=== PATIENT | female | born 1975 | race American Indian/Alaskan Native ===

== ENCOUNTER 2017-09-11 18:18 | Emergency (ER) | payer OTHER ==
[2017-09-12] MEDS ORDERED: MOTRIN PO ONE (00:41)
[2017-09-12] MEDS ORDERED: FLEXERIL PO ONE (00:41)
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
[2017-09-12 01:55] VITALS: BP 148/73
== END 2017-09-12 01:50 | disposition home or self-care (01) ==
LOC: ED 18:18
DX: S16.1XXA Strain of muscle, fascia and tendon at neck level, initial encounter (principal); M62.838 Other muscle spasm; Z88.2 Allergy status to sulfonamides; V89.2XXA Person injured in unspecified motor-vehicle accident, traffic, initial encounter; Y93.89 Activity, other specified; Y92.89 Other specified places as the place of occurrence of the external cause; Y99.8 Other external cause status
CPT/HCPCS: 99282